=== PATIENT | male | born 1945 | race Caucasian/White ===

== ENCOUNTER 2016-11-25 21:29 | Emergency (ER) | payer OTHER ==
[2016-11-25] MEDS ORDERED: NORMAL SALINE 1000 ML 1,000 ML IV ONE (23:06)
--- NOTE | 2016-11-25 23:07 | ER Document Report ---
ED Blood Sugar Problem - General Chief Complaint: Blood sugar problems Stated Complaint: BLOOD SUGAR PROBLEMS Time Seen by Provider: 11/25/16 22:53 Notes: Patient is a 71-year-old male comes emergency department for chief complaint of elevated blood glucose. He states last night his blood glucose was 700, he takes Lantus 40 units nightly and Humalog on a sliding scale. He states without eating carbohydrates he has had blood glucose in the 300s, 400s, and 500s at home today. He denies any fevers or chills, nausea or vomiting. He states he is blowing out a lot of mucus from his nose but otherwise denies any infectious symptoms. He has a healing wound on his right foot but states it is actually much better over the past few days. [facility]. He denies smoking. TRAVEL OUTSIDE OF THE [place] IN LAST 30 DAYS: No Past Medical History - General Information source: Patient - Social History Smoking Status: Never Smoker Drug Abuse: None Lives with: Family Family History: Reviewed & Not Pertinent Endocrine Medical History: Reports: Hx Diabetes Mellitus Type 2 Renal/ Medical History: Denies: Hx Peritoneal Dialysis Musculoskeltal Medical History: Reports Hx Musculoskeletal Deformity, Reports Hx Musculoskeletal Trauma - Immunizations Hx Diphtheria, Pertussis, Tetanus Vaccination: Yes Review of Systems - Review of Systems Constitutional: See HPI EENT: No symptoms reported Cardiovascular: No symptoms reported Respiratory: No symptoms reported Gastrointestinal: No symptoms reported Genitourinary: No symptoms reported Male Genitourinary: No symptoms reported Musculoskeletal: No symptoms reported Skin: See HPI Hematologic/Lymphatic: No symptoms reported Neurological/Psychological: No symptoms reported Physical Exam - Vital signs Vitals: Temp Pulse Resp BP Pulse Ox 98.0 F 80 20 125/71 99 11/25/16 22:17 11/25/16 22:17 11/25/16 22:17 11/25/16 22:17 11/25/16 22:17 Interpretation: Normal - General General appearance: Appears well, Alert In distress: None - Patient alert, conversational, well-appearing - HEENT Head: Normocephalic, Atraumatic Eyes: Normal Conjunctiva: Normal Extraocular movements intact: Yes Eyelashes: Normal Pupils: PERRL Nasal: Normal Mouth/Lips: Normal Mucous membranes: Normal Pharynx: Normal Neck: Normal - Respiratory Respiratory status: No respiratory distress Chest status: Nontender Breath sounds: Normal Chest palpation: Normal - Cardiovascular Rhythm: Regular. No: Tachycardia Heart sounds: Normal auscultation, S1 appreciated, S2 appreciated Murmur: No - Abdominal Inspection: Normal Distension: No distension Bowel sounds: Normal Tenderness: Nontender Organomegaly: No organomegaly - Back Back: Normal, Nontender - Extremities General upper extremity: Normal inspection, Nontender, Normal color, Normal ROM , Normal temperature General lower extremity: Other - Right lateral foot over the dorsal aspect just beside the fifth toe with an area of skin breakdown, good granulation, no significant erythema, no tenderness, no abnormal odor, no abnormalities noted otherwise. - Neurological Neuro grossly intact: Yes Cognition: Normal Orientation: AAOx4 [place] Coma Scale Eye Opening: Spontaneous [place] Coma Scale Verbal: Oriented [place] Coma Scale Motor: Obeys Commands [place] Coma Scale Total: 15 Speech: Normal Motor strength normal: LUE, RUE, LLE, RLE Sensory: Normal - Psychological Associated symptoms: Normal affect, Normal mood - Skin Skin Temperature: Warm Skin Moisture: Dry Skin Color: Normal Course - Re-evaluation Re-evalutation: CBC shows normocytic anemia, no comparison, no leukocytosis. Chemistry shows mild hyponatremia, hyperkalemia, elevated glucose. Anion gap and bicarbonate are normal. Also shows elevated creatinine with decreased GFR, no comparison labs. Patient was given IV fluids. He is asymptomatic on my examination. The wound on his foot does not appear to be infected. No fever, tachycardia, hypotension. Repeat of chemistry shows significant improvement with almost normalization of potassium, and agreement of sodium, improvement of kidney functioning. Patient admits to me that he left his Lantus in a hot car for a long time and now when he takes it does not seem to do anything. He is afraid he ruined it. I did offer to provide him with a new prescription of Lantus. Patient states he has a referral with endocrinology. Patient will be given this prescription, discharged at this time, given recommendations for follow-up, discussed return precautions in detail, patient and son state understanding and agreement. - Vital Signs Vital signs: Temp Pulse Resp BP Pulse Ox 98.0 F 80 16 109/72 100 11/25/16 22:17 11/25/16 22:17 11/26/16 02:01 11/26/16 02:00 11/26/16 02:01 - Laboratory Result Diagrams: 11/25/16 23:44 11/26/16 01:44 Laboratory results interpreted by me: 11/25/16 11/25/16 11/25/16 23:44 23:44 23:50 RBC 3.33 L Hgb 10.1 L Hct 29.3 L Sodium 129.9 L Potassium 5.6 H Chloride 94 L BUN 41 H Creatinine 1.55 H Est GFR ( Amer) 54 L Est GFR (Non-Af Amer) 45 L Glucose 370 H Direct Bilirubin 0.5 H Urine Glucose (UA) >=500 H Urine Ketones 20 H 11/26/16 01:44 RBC Hgb Hct Sodium 131.5 L Potassium 5.1 H Chloride BUN 35 H Creatinine 1.42 H Est GFR ( Amer) Est GFR (Non-Af Amer) 49 L Glucose 299 H Direct Bilirubin Urine Glucose (UA) Urine Ketones Discharge - Discharge Clinical Impression: Elevated blood sugar Condition: Stable Disposition: HOME, SELF-CARE Additional Instructions: Your kidney functioning test was slightly elevated, after treatment your potassium level became normal. I recommend a follow-up with your provider this week for recheck of your kidney functioning. Use the prescribed Lantus along with your Humalog for treatment of diabetes. Return to emergency department for any concerning symptoms including vomiting, fever, abdominal pain, or any other concerning symptoms. Prescriptions: Insulin Glargine,Hum.rec.anlog [Lantus] 40 unit SQ QHS #30 vial
[2016-11-25 23:52] LABS: ABSOLUTE LYMPHOCYTES (AUTO) 1.7 10^3/uL (0.5-4.7); ABSOLUTE MONOCYTES (AUTO) 0.6 10^3/uL (0.1-1.4); ABSOLUTE NEUT (AUTO) 2.9 10^3/uL (1.7-8.2); BASOPHILS % (AUTO) 0.6 % (0-2); EOSINOPHILS % (AUTO) 0.2 % (0-6); HEMATOCRIT 29.3 % (37.9-51.0); HEMOGLOBIN 10.1 g/dL (13.5-17.0); LYMPHOCYTES % (AUTO) 31.7 % (13-45); MEAN CORPUSCULAR HEMOGLOBIN 30.3 pg (27.0-33.4); MEAN CORPUSCULAR HGB CONC 34.5 g/dL (32.0-36.0); MEAN CORPUSCULAR VOLUME 88 fl (80-97); MONOCYTES % (AUTO) 11.7 % (3-13); RED BLOOD COUNT 3.33 10^6/uL (4.35-5.55); RED CELL DISTRIBUTION WIDTH 13.5 % (11.5-14.0); SEGMENTED NEUTROPHILS % (AUTO) 55.8 % (42-78); WHITE BLOOD COUNT 5.2 10^3/uL (4.0-10.5)
[2016-11-26 00:21] LABS: ALANINE AMINOTRANSFERASE 31 U/L (21-72); ALBUMIN 3.8 g/dL (3.5-5.0); ALKALINE PHOSPHATASE 96 U/L (38-126); ANION GAP 14 (5-19); ASPARTATE AMINO TRANSFERASE 19 U/L (17-59); BILIRUBIN,DIRECT 0.5 mg/dL (0.0-0.4); BILIRUBIN,TOTAL 0.7 mg/dL (0.2-1.3); BLOOD UREA NITROGEN 41 mg/dL (7-20); CALCIUM 9.7 mg/dL (8.4-10.2); CARBON DIOXIDE 22 mmol/L (22-30); CHLORIDE 94 mmol/L (98-107); CREATININE RESULT 1.55 mg/dL (0.52-1.25); GLUCOSE 370 mg/dL (75-110); POTASSIUM 5.6 mmol/L (3.6-5.0); SODIUM 129.9 mmol/L (137-145); TOTAL PROTEIN 6.7 g/dL (6.3-8.2)
[2016-11-26 00:29] LABS: APPEARANCE,URINE CLEAR; BILIRUBIN,URINE NEGATIVE (NEGATIVE); GLUCOSE, URINE >=500 mg/dL (NEGATIVE); KETONES,URINE 20 mg/dL (NEGATIVE); LEUKOCYTE ESTERASE,URINE NEGATIVE (NEGATIVE); NITRITE,URINE NEGATIVE (NEGATIVE); PROTEIN,URINE NEGATIVE (NEGATIVE); URINE SPECIFIC GRAVITY 1.017; UROBILINOGEN,URINE NEGATIVE mg/dL (<2.0)
[2016-11-26] MEDS ORDERED: NORMAL SALINE 1000 ML 1,000 ML IV ONE (00:57)
[2016-11-26 02:26] LABS: ANION GAP 8 (5-19); BLOOD UREA NITROGEN 35 mg/dL (7-20); CALCIUM 8.5 mg/dL (8.4-10.2); CARBON DIOXIDE 23 mmol/L (22-30); CHLORIDE 101 mmol/L (98-107); CREATININE RESULT 1.42 mg/dL (0.52-1.25); GLUCOSE 299 mg/dL (75-110); POTASSIUM 5.1 mmol/L (3.6-5.0); SODIUM 131.5 mmol/L (137-145)
[2016-11-26 02:49] VITALS: BP 109/72
== END 2016-11-26 02:49 | disposition home or self-care (01) ==
LOC: ER 21:29
DX: E11.65 Type 2 diabetes mellitus with hyperglycemia (principal); Z79.4 Long term (current) use of insulin; J34.89 Other specified disorders of nose and nasal sinuses; D64.9 Anemia, unspecified; E87.1 Hypo-osmolality and hyponatremia
CPT/HCPCS: 99283; 36415; 85025; 80048; 80053; 81001; J7030

== ENCOUNTER 2017-03-26 19:59 | Emergency (ER) | payer OTHER, MEDICARE ==
[2017-03-26 20:32] VITALS: BP 149/78
[2017-03-26] MEDS ORDERED: SILVER NITRATE APPLICATOR 1 APPLIC STICK..EA. 10/PACKAGE TOP ONE ×2 (23:14)
--- NOTE | 2017-03-26 23:20 | ER Document Report ---
ED General - General Chief Complaint: Arm Problem Stated Complaint: RIGHT HAND INJURY Time Seen by Provider: 03/26/17 23:11 Mode of Arrival: Ambulatory Information source: Patient TRAVEL OUTSIDE OF THE [place] IN LAST 30 DAYS: No - HPI Patient complains to provider of: cut right wrist on boat prop yesterday Onset: Yesterday Severity: None Associated symptoms: None Similar symptoms previously: No Recently seen / treated by doctor: No Past Medical History - General Information source: Patient - Social History Smoking Status: Never Smoker Chew tobacco use (# tins/day): No Frequency of alcohol use: Occasional Drug Abuse: None Occupation: retired Family History: Reviewed & Not Pertinent Patient has suicidal ideation: No Patient has homicidal ideation: No - Past Medical History Cardiac Medical History: Reports: Hx Hypertension Pulmonary Medical History: Reports: None EENT Medical History: Reports: None, Eyes Other: blind left eye Neurological Medical History: Reports: None Endocrine Medical History: Reports: Hx Diabetes Mellitus Type 2 Renal/ Medical History: Denies: Hx Peritoneal Dialysis Malignancy Medical History: Reports None GI Medical History: Reports: None Musculoskeltal Medical History: Reports Hx Musculoskeletal Deformity, Reports Hx Musculoskeletal Trauma Skin Medical History: Reports None Psychiatric Medical History: Reports: None Other: 1200lb drilling auger fell on head Past Surgical History: Reports: None - Immunizations Hx Diphtheria, Pertussis, Tetanus Vaccination: Yes History of Influenza Vaccine for 01/2017 - 06/2017 Season: Yes Review of Systems - Review of Systems Constitutional: No symptoms reported EENT: No symptoms reported Cardiovascular: No symptoms reported Respiratory: No symptoms reported Gastrointestinal: No symptoms reported Musculoskeletal: No symptoms reported Skin: See HPI Hematologic/Lymphatic: Other - takes ASA daily Neurological/Psychological: No symptoms reported Physical Exam - Vital signs Vitals: Temp Pulse Resp BP Pulse Ox 97.9 F 82 18 149/78 H 100 03/26/17 20:22 03/26/17 20:22 03/26/17 20:22 03/26/17 20:22 03/26/17 20:22 - General General appearance: Appears well - HEENT Head: Normocephalic, Atraumatic Eyes: Normal. No: Pale conjunctiva, Periorbital ecchymosis, Periorbital edema, Scleral icterus Conjunctiva: Normal Cornea: Normal Extraocular movements intact: Yes Eyelashes: Normal - Respiratory Respiratory status: No respiratory distress Breath sounds: Normal - Cardiovascular Rhythm: Regular Heart sounds: Normal auscultation - Abdominal Inspection: Normal Distension: No distension Bowel sounds: Normal Tenderness: Nontender - Back Back: Normal - Extremities General upper extremity: Other - one inch by one onch avulsion injury to right forearm volar surface 3 inches proximal to wrist. Mild bleeding is present. No foreign body. General lower extremity: Normal inspection Arm: Normal Wrist: Normal Hand: Normal - Neurological Cognition: Normal Orientation: AAOx4 Cranial nerves: Normal Course - Vital Signs Vital signs: Temp Pulse Resp BP Pulse Ox 97.9 F 82 18 149/78 H 100 03/26/17 20:22 03/26/17 20:22 03/26/17 20:22 03/26/17 20:22 03/26/17 20:22 Discharge - Discharge Clinical Impression: Skin avulsion Condition: Stable Disposition: HOME, SELF-CARE Instructions: Avulsion Injury ([facility]) Additional Instructions: Return to the emergency department if any concerns. [facility] Prescriptions: Cephalexin Monohydrate [Keflex 500 mg Capsule] 500 mg PO Q6H 5 Days #20 capsule
== END 2017-03-26 23:22 | disposition home or self-care (01) ==
LOC: ER 19:59
DX: S51.811A Laceration without foreign body of right forearm, initial encounter (principal); W45.8XXA Other foreign body or object entering through skin, initial encounter; I10 Essential (primary) hypertension; E11.9 Type 2 diabetes mellitus without complications; Z79.82 Long term (current) use of aspirin
CPT/HCPCS: 99283

== ENCOUNTER 2017-06-16 15:28 | Emergency (ER) | payer OTHER, MEDICARE ==
--- NOTE | 2017-06-16 16:34 | ER Document Report ---
ED General - General Chief Complaint: Dog Bite Stated Complaint: FINGER LACERATION Time Seen by Provider: 06/16/17 16:32 Mode of Arrival: Ambulatory Information source: Patient Notes: Patient is a 72 year old male who presents with laceration to pad of right ring finger that occurred yesterday afternoon while playing with his pet puppy. He states that he was going to throw the ball and his puppy went for the ball while it was in his hand, catching her teeth on his finger. He states the puppy is up to date on her shots. He did not come to the ED immediately after because he was afraid of what might happen to his dog. He denies fever, chills, swelling. Endorses that the bleeding has not stopped, has bandaid on finger. 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 Tetanus is up to date for patient. He is not on blood thinners. TRAVEL OUTSIDE OF THE [place] IN LAST 30 DAYS: No - Related Data Allergies/Adverse Reactions: Penicillins Allergy (Verified 06/16/17 16:29) Past Medical History - General Information source: Patient - Social History Smoking Status: Unknown if Ever Smoked Family History: Reviewed & Not Pertinent Patient has suicidal ideation: No Patient has homicidal ideation: No - Past Medical History Cardiac Medical History: Reports: Hx Hypertension Endocrine Medical History: Reports: Hx Diabetes Mellitus Type 2 Renal/ Medical History: Denies: Hx Peritoneal Dialysis Musculoskeltal Medical History: Reports Hx Musculoskeletal Deformity, Reports Hx Musculoskeletal Trauma - Immunizations Hx Diphtheria, Pertussis, Tetanus Vaccination: Yes Review of Systems - Review of Systems Constitutional: See HPI EENT: No symptoms reported Cardiovascular: No symptoms reported Respiratory: No symptoms reported Gastrointestinal: No symptoms reported Genitourinary: No symptoms reported Male Genitourinary: No symptoms reported Musculoskeletal: No symptoms reported Skin: See HPI Hematologic/Lymphatic: No symptoms reported Neurological/Psychological: No symptoms reported Physical Exam - Vital signs Vitals: Temp Pulse Resp BP Pulse Ox 98.5 F 85 16 134/81 H 99 06/16/17 15:52 06/16/17 15:52 06/16/17 15:52 06/16/17 15:52 06/16/17 15:52 - Notes Notes: PHYSICAL EXAM: CONSTITUTIONAL: Alert and oriented, well-appearing and in no acute distress. HENT: Normocephalic, atraumatic. Trachea midline. Uvula midline. Moist mucous membranes. EYES: Pupils equal round and reactive to light, EOM intact. Sclera anicteric, conjunctiva are normal. No entrapment. NECK: supple without lymphadenopathy. No midline tenderness or paraspinous muscle spasms. No step-offs or deformities. ROM intact. HEART: Regular rate and rhythm without murmurs. LUNGS: CTAB and equal. No wheezes, rales or rhonchi. GI: Normactive bowel sounds. Nontender, non-distended. No organomegaly. no CVAT. EXTREMITIES: no bony tenderness, erythema, edema, ecchymosis or deformity. Normal range of motion, no pitting edema. No cyanosis. Cap Refill <3 seconds. NEURO: Cranial nerves grossly intact. Normal sensory/motor exams. PSYCH: Normal mood, normal affect. SKIN: Warm and dry. Normal turgor. 1.5 cm V shaped laceration to pad of right ring finger on palmar surface, bleeding controlled. Course - Re-evaluation Re-evalutation: 06/16/17 16:34 patient seen and examined. Well hydrating, well appearing, afebrile, speaking in full sentences without difficulty. Laceration to pad of right ring finger, bleeding controlled. Patient states dog did not bite aggressively, is up to date and tetanus is up to date on patient. He is not on blood thinners. 06/16/17 19:32 Reviewed imaging results - discussed with patient. Laceration cleaned with betadine wash after digital block performed. Due to length of time since laceration and laceration caused by dog, did not suture closed. PCT applied bulky dressing, given IM abx here and will give script for same. At this time, will discharge with return precautions and follow-up recommendations. Verbal discharge instructions given at the bedside and opportunity for questions given. Medication warnings reviewed. Patient is in agreement with this plan and has verbalized understanding of return precautions and the need for primary care follow-up in the next 24-72 hours. - Vital Signs Vital signs: Temp Pulse Resp BP Pulse Ox 98.5 F 85 16 134/81 H 99 06/16/17 15:52 06/16/17 15:52 06/16/17 15:52 06/16/17 15:52 06/16/17 15:52 - Diagnostic Test Radiology reviewed: Image reviewed, Reports reviewed Discharge - Discharge Clinical Impression: Laceration of finger Qualifiers: Encounter type: initial encounter Finger: ring finger Damage to nail status: without damage Foreign body presence: without foreign body Laterality: right Qualified Code(s): S61.214A - Laceration without foreign body of right ring finger without damage to nail, initial encounter Dog bite Qualifiers: Encounter type: initial encounter Qualified Code(s): W54.0XXA - Bitten by dog, initial encounter Condition: Stable Disposition: HOME, SELF-CARE Instructions: Animal Bites ([facility]) Additional Instructions: NON-SUTURED LACERATION: Your laceration could not be sutured today. Some lacerations cannot be sutured because of increased infection risk, while others simply don't need stitches because they are shallow or very short. Your injury should be protected while it heals. Usually complete healing takes 10 to 14 days. Keep the dressing clean and dry, and change it every day. If you notice increasing pain, redness, swelling, drainage, or tender lumps in the armpit or groin above the injury, infection may be present. You should call the doctor at once. SOAP CLEANSING: Gently wash the wound daily using a mild soap (like Ivory, Phisoderm, Neutrogena). Use warm water, rubbing gently until all debris, ooze, and crusting have been washed from the wound. Allow to dry briefly (about 10 minutes) after cleaning. Repeat this cleansing at least three times a day for the first two days and then once or twice a day. ANTIBIOTIC OINTMENT PROTECTION: Your wounds are such that dressing them is not practical or optional. After cleansing, you should apply a thin coating of antibiotic ointment ( Bacitracin, not Neosporin) to the wounds at least three times daily. This lessens infection risk, and may decrease the amount of scarring. Use a q-tip or dull butter knife, not your finger, to apply this ointment. Any debris or ooze which builds up in the ointment should be gently rubbed off with a sterile gauze pad. Harder crusting may need to be gently scrubbed off with a clean wash cloth with soap and warm water, perhaps applying a warm, wet wash cloth to the wound for ten minutes first. Development of redness, severe itching, or blistering may mean allergy to the ointment. See the doctor. PROPHYLACTIC ANTIBIOTIC: The antibiotics which have been prescribed are designed to decrease the risk of infection. Only certain types of wounds benefit from this -- the typical cut, scrape, or burn DOES NOT require antibiotics. Of course, infection can still occur despite the use of prophylactic antibiotics. Your wound will heal with less chance of an infectious complication if you take the medication as directed. The most important dose is the FIRST dose, so don't delay filling the prescription! ORAL NARCOTIC MEDICATION: You have been given a prescription for pain control. This medication is a narcotic. It's best taken with food, as nausea can result if taken on an empty stomach. Don't operate machinery or drive within six hours of taking this medication. Do not combine this medicine with alcohol, or with any medication which can cause sedation (such as cold tablets or sleeping pills) unless you get permission from the physician. Narcotics tend to cause constipation. If possible, drink plenty of fluids and eat a diet high in fiber and fruits. FOLLOW-UP CARE: Please return in __5___ days for an infection check and dressing change. If you have been referred to another physician for follow-up care, call that physicians office for an appointment as you were instructed. If you experience a significant change in your laceration, or if you are concerned there may be an infection (swelling, redness, drainage, increasing tenderness, red streaks, tender lumps in the armpit or groin above the laceration, or fever) , return to the Emergency Department immediately re-evaluation. Prescriptions: Doxycycline Hyclate 100 mg PO BID #14 capsule Forms: Elevated Blood Pressure
[2017-06-16] MEDS ORDERED: HYDROCODONE/ACETAMINOPHEN 5-325 MG TABLET PO ONE (17:01)
--- NOTE | 2017-06-16 17:59 | RADIOLOGY REPORT (SQ) ---
EXAM DESCRIPTION: HAND RIGHT 3 VIEWS COMPLETED DATE/TIME: 06/16/2017 5:37 pm REASON FOR STUDY: laceration to right ring finger COMPARISON: None. EXAM PARAMETERS: NUMBER OF VIEWS: Three views. TECHNIQUE: AP, lateral and oblique radiographic images acquired of the right hand. LIMITATIONS: None. FINDINGS: MINERALIZATION: Normal. BONES: No acute fracture or dislocation. No worrisome bone lesions. JOINTS: No effusions. SOFT TISSUES: No soft tissue swelling. No foreign body. OTHER: No other significant finding. IMPRESSION: NEGATIVE STUDY OF THE RIGHT HAND. NO RADIOGRAPHIC EVIDENCE OF ACUTE INJURY. TECHNICAL DOCUMENTATION: JOB ID: [id number] [employer]- All Rights Reserved Reading location - IP/workstation name: [email or web address]
[2017-06-16] MEDS ORDERED: CEFTRIAXONE INJ 1000 MG VIAL IM ONE (18:27)
[2017-06-16] MEDS ORDERED: LIDOCAINE 1% INJ-PF (10 MG/ML) 30 ML SDV INFIL ONE (18:27)
[2017-06-16] MEDS ORDERED: LIDOCAINE 1% INJ (10 MG/ML) 10 ML MDV INJ ONE (18:29)
[2017-06-16] MEDS ORDERED: DOXYCYCLINE HYCLATE 100 MG TABLET PO ONE (18:56)
[2017-06-16] MEDS ORDERED: HYDROCODONE/ACETAMINOPHEN 5-325 MG (6 TAB/ER DISP) PO PRN (18:59)
[2017-06-16 20:29] VITALS: BP 117/70
== END 2017-06-16 20:24 | disposition home or self-care (01) ==
LOC: ER 15:28
PROC: 3E0T3BZ Introduction of Anesthetic Agent into Peripheral Nerves and Plexi, Percutaneous Approach (ICD-10-PCS; principal; 2017-06-16)
DX: S61.214A Laceration without foreign body of right ring finger without damage to nail, initial encounter (principal); W54.0XXA Bitten by dog, initial encounter; Z86.14 Personal history of Methicillin resistant Staphylococcus aureus infection
CPT/HCPCS: 64455; 99283; 96372; 73130; J3490; J0696